=== PATIENT | male | born 1950 | race African-American/Black ===

== ENCOUNTER 2020-06-30 22:00 | Emergency (ER) | payer MEDICARE, BC, MEDICAID ==
[~2020-06-30] VITALS: Ht 182.9 cm; Wt 93.0 kg
[2020-07-01] MEDS ORDERED: ASPIRIN 81 MG TAB.CHEW PO ONE (00:50)
[2020-07-01] MEDS ORDERED: NACL 0.9% 500 ML IV ONE (00:50)
[2020-07-01 01:12] VITALS: BP 144/77
--- NOTE | 2020-07-01 01:20 | NUR ---
ZEFERINO, PRODUCTION SAMPLER AT BEDSIDE.
[2020-07-01 01:26] LABS: HEMATOCRIT 34.9 % (36-52); MEAN CORPUSCULAR VOLUME 98.8 fL (80-94); RED BLOOD CELL COUNT(AUTO) 3.53 MIL/uL (4.20-6.10)
--- NOTE | 2020-07-01 01:40 | NUR ---
PT TRANSFERRED TO ER BED 10 VIA [facility].
[2020-07-01 01:44] LABS: PROTHROMBIN TIME 11.4 secs (10.8-13.4)
--- NOTE | 2020-07-01 01:45 | NUR ---
70 Y/O MALE BIBA C/O GENERALIZED WEAKNESS. PT STATES HE IS FEELING FINE BUT THAT HIS CALLED THE AMBULANCE BECAUSE HE HAD BEEN SHAKEY & LETHARGIC. PER CONVERSATION W/ . PT HAS BEEN SHAKEY AND LETHARGIC X 2 DAYS. PT HAS HAD THESE SYMPTOMS PREVIOUSLY X 1 YR AGO. PT STATES HE HAS BEEN FALLING ASLEEP MID CONVERSATION. PT MAY ALSO HAVE UTI - HAS BEEN SEEING UROLOGIST DR. JEFF AND SHOULD BE GETTING URINE RESULTS ON TUESDAY. PT HAS INJURY TO LEG AND IS UNABLE TO AMBULATE PER . PT A/O X4 , RR EVEN AND UNLABORED. PT HAS ESRD - SHUNT ON LT ARM. DIALYSIS IS NORMALLY T, TH , S . PT DENIES ABD PAIN, ABD SOFT , ROUND AND NONTENDER UPON PALPATION. PT RESPONDING APPROPRIATELY TO COMMANDS. PT RESTING IN BED, LOCKED AND IN LOWEST POSITION ,HOB ELEVATED, SIDE RAIL X2 FOR PT SAFETY. PT CONNECTED TO SETUP TECHNICIAN, PULSE OX AND BP CUFF. PMH- DM, HTN, HIGH CHOLESTEROL AND ESRD- DIALYSIS ON T, AND SAT MEDS- UNKNOWN
[2020-07-01 01:47] LABS: ANION GAP 21.9 (8-16); CARBON DIOXIDE 18.9 mmol/L (21-32); POTASSIUM 3.8 mmol/L (3.5-5.1); TOTAL BILIRUBIN 0.8 mg/dL (0.0-1.0)
--- NOTE | 2020-07-01 01:50 | NUR ---
pt has mild weakness in Lt upper extremity - per pt this is his baseline.
[2020-07-01 01:52] LABS: BASOPHILS % (AUTO) 0.2 % (0.0-2.0); EOSINOPHILS % (AUTO) 0.3 % (0.0-4.0); HEMOGLOBIN 11.2 g/dL (12.0-18.0); LYMPHOCYTES # (AUTO) 0.7 K/uL (2.0-11.5); LYMPHOCYTES % (AUTO) 5.2 % (20.5-51.1); MEAN CORPUSCULAR HEMOGLOBIN 32 pg (27-31); MEAN CORPUSCULAR HGB CONC 32 g/dL (33-37); MONOCYTES # (AUTO) 1.3 K/uL (0.8-1.0); NEUTROPHILS # (AUTO) 10.9 K/uL (1.8-7.7); PLATELET COUNT (AUTO) 240 K/uL (140-450); WHITE BLOOD COUNT (AUTO) 12.9 K/uL (4.8-10.8)
[2020-07-01 01:58] LABS: CREATININE 11.7 mg/dL (0.6-1.3)
[2020-07-01 02:02] LABS: NEUTROPHILS % (AUTO) 84.3 % (42.2-75.2)
--- NOTE | 2020-07-01 02:03 | NUR ---
BIANCA CID AT BEDSIDE FOR MEDICAL EVALUATION.
--- NOTE | 2020-07-01 02:08 | NUR ---
UNABLE TO ESTABLISH IV AT THIS TIME. CHARGE NURSE MADE AWARE.
--- NOTE | 2020-07-01 02:35 | NUR ---
PER PT AUTHORIZATION, SPOKE W/ GERTIES REGARDING PT STATUS. PER PT HAS BEEN LETHARGIC X 2 DAYS. PT HAS BEEN FALLING ASLEEP AT RANDOM TIMES. DURING CONVERSATION WAS ABLE TO OBTAIN PT AT HOME MEDICATION LIST. WILL UPDATE W/ PT STATUS ONCE LABS AND RADIOLOGY TESTS HAVE BEEN COMPLETED. CELL [phone]
[2020-07-01] MEDS ORDERED: VIT1TABL36 PO (02:41)
[2020-07-01] MEDS ORDERED: APIX5TAB PO (02:41)
[2020-07-01] MEDS ORDERED: HUMSLIDE (02:41)
[2020-07-01] MEDS ORDERED: ACET-2619 PO (02:41)
[2020-07-01] MEDS ORDERED: PRO5 PO (02:41)
[2020-07-01] MEDS ORDERED: MULT-1469 PO (02:41)
[2020-07-01] MEDS ORDERED: MULT-2253 PO (02:41)
[2020-07-01] MEDS ORDERED: VITB12 PO (02:41)
[2020-07-01] MEDS ORDERED: FLOR250 PO (02:41)
[2020-07-01] MEDS ORDERED: METO25TE2 PO (02:41)
[2020-07-01] MEDS ORDERED: LIP80 PO (02:41)
[2020-07-01] MEDS ORDERED: INSU100S22 SUBQ (02:41)
[2020-07-01] MEDS ORDERED: GABA100C PO (02:41)
[2020-07-01] MEDS ORDERED: METO-485 PO (02:41)
--- NOTE | 2020-07-01 03:05 | NUR ---
PT SLEEPING IN BED, LOCKED AND IN LOWEST POSITION, HOB ELEVATED, SIDE RAIL X2 FOR PT SAFETY. RR EVEN AND UNLABORED, VISIBLE RISE AND FALL OF CHEST. VSS. NO ACUTE DISTRESS NOTED AT THIS TIME.
--- NOTE | 2020-07-01 04:29 | NUR ---
Pt repositioned for comfort. No acute distress noted. VSS.
--- NOTE | 2020-07-01 05:15 | NUR ---
called Pt - let her know he is ready for discharge. Per she will come and pick him up, not sure of eta . She will be getting ready and heading to ER as soon as possible.
--- NOTE | 2020-07-01 05:24 | NUR ---
IV removed, catheter intact and site benign. Applied folded 4x4 gauze and tape to stop bleeding.
--- NOTE | 2020-07-01 05:25 | NUR ---
PT STATES DUE TO WEAKNESS IN LT HAND UNABLE TO SIGN DISCHARGE FORM. PER PT HE IS OKAY W/ HIS SIGNING FORM FOR HIM.
--- NOTE | 2020-07-01 07:15 | NUR ---
REPORT RECEIVED FROM MICHELLE JAMES. [place] OF [facility] AT THIS TIME.
--- NOTE | 2020-07-01 07:29 | NUR ---
CALLED PT'S TO PICK PT UP WITH NO ANSWER AND LEFT MESSAGE @ [phone]. ASSISTED PT TO WAIT IN THE LOBBY VIA .
--- NOTE | 2020-07-01 07:43 | NUR ---
Patient discharged with v/s stable. Written and verbal after care instructions given and explained. Patient alert, oriented and verbalized understanding of instructions. Ambulatory with steady gait. All questions addressed prior to discharge. ID band removed. Patient advised to follow up with PMD.
[2020-07-01 07:44] VITALS: BP 150/75
== END 2020-07-01 07:43 | disposition home or self-care (01) ==
LOC: MED 22:00
DX: E11.22 Type 2 diabetes mellitus with diabetic chronic kidney disease (principal); I12.0 Hypertensive chronic kidney disease with stage 5 chronic kidney disease or end stage renal disease; N18.6 End stage renal disease; Z99.2 Dependence on renal dialysis; Z79.4 Long term (current) use of insulin; Z79.899 Other long term (current) drug therapy; Z98.890 Other specified postprocedural states
CPT/HCPCS: 36415; 71045; 80053; 83880; 84484; 85025; 85610; 85730; 93005; 96360; 96361; 99285; J7030